=== PATIENT | male | born 1970 ===

== ENCOUNTER 2018-09-08 09:56 | Outpatient (CLI) | payer OTHER | END 2018-09-08 09:58 | disposition home or self-care (01) | LOC: RAD 09:56 | DX: M54.2 Cervicalgia (principal) ==

== ENCOUNTER 2018-09-13 14:11 | Outpatient (CLI) | payer OTHER | END 2018-09-13 14:18 | disposition home or self-care (01) | LOC: MRI 14:11 | DX: M54.12 Radiculopathy, cervical region (principal); M62.830 Muscle spasm of back | CPT/HCPCS: 72148 ==